=== PATIENT | male | born 1995 | race Caucasian/White ===

== ENCOUNTER 2019-08-20 16:24 | Emergency (ER) | payer SELFPAY ==
[~2019-08-20] VITALS: Ht 175.3 cm; Wt 74.8 kg
[2019-08-20 16:31] VITALS: BP 122/72
== END 2019-08-20 18:43 | disposition left against medical advice (07) ==
LOC: ER 16:29
DX: S61.213A Laceration without foreign body of left middle finger without damage to nail, initial encounter (principal); Z53.21 Procedure and treatment not carried out due to patient leaving prior to being seen by health care provider; X58.XXXA Exposure to other specified factors, initial encounter; Y93.89 Activity, other specified; Y99.8 Other external cause status; Y92.89 Other specified places as the place of occurrence of the external cause

== ENCOUNTER 2020-05-21 17:12 | Emergency (ER) | payer SELFPAY ==
[~2020-05-21] VITALS: Ht 175.3 cm; Wt 83.9 kg
[2020-05-21 21:48] VITALS: BP 101/55
[2020-05-21] MEDS ORDERED: KETOROLAC TROMETH 60MG/2ML VIAL IM ONE (22:00)
[2020-05-21] MEDS ORDERED: cefTRIAXone SOD 1,000 MG VL IM ONE (22:00)
== END 2020-05-21 22:49 | disposition home or self-care (01) ==
LOC: ER 17:12
DX: K04.7 Periapical abscess without sinus (principal); K02.9 Dental caries, unspecified; K03.81 Cracked tooth; Z88.8 Allergy status to other drugs, medicaments and biological substances
CPT/HCPCS: 96372; 99284; J0696; J1885